=== PATIENT | male | born 1950 | race African-American/Black ===

== ENCOUNTER 2016-11-19 08:55 | Emergency (ER) | payer MEDICAID, MEDICARE ==
[~2016-11-19] VITALS: Ht 188 cm; Wt 90.9 kg
[2016-11-19 09:01] VITALS: BP 152/92
[2016-11-19] MEDS ORDERED: BACITRACIN 0.9 GM PACKET OINTMENT TP ONE (09:45)
== END 2016-11-19 10:00 | disposition home or self-care (01) ==
LOC: EMS 08:59
DX: L97.329 Non-pressure chronic ulcer of left ankle with unspecified severity (principal); Z48.00 Encounter for change or removal of nonsurgical wound dressing
CPT/HCPCS: 99283

== ENCOUNTER 2016-11-28 16:44 | Emergency (ER) | payer MEDICARE ==
[~2016-11-28] VITALS: Ht 185.4 cm; Wt 93.2 kg
[2016-11-28 19:42] LABS: BASOPHILS % (AUTO) 0.6 % (0.0-2.0); EOSINOPHILS % (AUTO) 1.9 % (1.0-6.0); HEMATOCRIT 36.4 % (41-53); HEMOGLOBIN 12.2 g/dL (13.5-17.5); LYMPHOCYTES % (AUTO) 15.9 % (22.0-44.0); MEAN CORPUSCULAR HEMOGLOBIN 28.8 pg (26.0-34.0); MEAN CORPUSCULAR HGB CONC 33.5 G/dL (31.0-37.0); MEAN CORPUSCULAR VOLUME 86 fL (80-100); MONOCYTES # (AUTO) 0.6 K/uL (0.1-1.0); MONOCYTES % (AUTO) 9.6 % (2.0-9.0); NEUTROPHILS # (AUTO) 4.4 K/uL (1.8-7.7); PLATELET COUNT (AUTO) 314 K/uL (150-450); RED BLOOD CELL COUNT(AUTO) 4.24 MIL/uL (4.50-5.90); RED CELL DISTRIBUTION WIDTH 13.3 % (11.5-14.5); WHITE BLOOD COUNT (AUTO) 6.1 K/uL (4.5-11.0)
[2016-11-28 19:52] LABS: ANION GAP 10 mmol/L (8-16); CALCIUM, TOTAL 9.1 mg/dL (8.8-10.5); CARBON DIOXIDE 29 mmol/L (22-29); CHLORIDE 103 mmol/L (98-107); GLOMERULAR FILTR. RATE CALC > 60 mL/min (>60); POTASSIUM 4.1 mmol/L (3.5-5.1); SODIUM SERUM 142 mmol/L (136-145); UREA NITROGEN, BLOOD 7 mg/dL (7-18)
[2016-11-28 19:54] LABS: INR 0.9 (0.9-1.1); PROTHROMBIN TIME 9.8 SEC (9.4-11.6)
[2016-11-28 19:57] LABS: ALANINE AMINOTRANSFERASE 33 U/L (12-78); ALBUMIN 3.2 g/dL (3.4-5.0); ASPARTATE AMINOTRANSFERASE 27 U/L (15-37); BILIRUBIN,TOTAL 0.3 mg/dL (0.1-1.0); TOTAL PROTEIN, SERUM 7.3 g/dL (6.4-8.2)
[2016-11-28] MEDS ORDERED: BISACODYL 10 MG RECTAL RECTAL SUPPOSITORY PR PRN (22:15)
[2016-11-28] MEDS ORDERED: ALBUTEROL SULFATE 2.5 MG/0.5 ML NEB SOLUTION NEB PRN (22:15)
[2016-11-28] MEDS ORDERED: ACETAMINOPHEN 325 MG TABLET PO PRN ×2 (22:15)
[2016-11-28] MEDS ORDERED: ENOXAPARIN SODIUM 100 MG/ML PF SYRINGE SQ SCH (22:15)
[2016-11-28] MEDS ORDERED: ONDANSETRON HCL 4 MG/2 ML VIAL IVP PRN (22:15)
[2016-11-28] MEDS ORDERED: 0.9% SODIUM CHLORIDE 10 ML SYRINGE IVP PRN (22:15)
[2016-11-28] MEDS ORDERED: OxyCODONE HCL/ACETAMINOPHEN 5-325 MG TABLET PO PRN (22:15)
[2016-11-28 22:30] VITALS: BP 124/83
[2016-11-29] MEDS ORDERED: HEPARIN SODIUM,PORCINE 5,000 UNITS/ML VIAL SQ SCH
[2016-11-29] MEDS ORDERED: ENOXAPARIN SODIUM 100 MG/ML PF SYRINGE SQ SCH (09:00)
[2016-11-29] MEDS ORDERED: DOCUSATE SODIUM 100 MG CAPSULE PO SCH (09:00)
[2016-11-29] MEDS ORDERED: PANTOPRAZOLE SODIUM 40 MG DR TABLET PO SCH (09:00)
== END 2016-11-28 23:02 | disposition home or self-care (01) ==
LOC: EMS 16:46 → UNDOADMIN 22:00 → 6N 22:00 → EMS 23:02
DX: R60.0 Localized edema (principal); M79.89 Other specified soft tissue disorders; Z88.8 Allergy status to other drugs, medicaments and biological substances
CPT/HCPCS: 87040; 93925; 93971; 99285; J1650

== ENCOUNTER 2017-02-24 10:59 | Emergency (ER) | payer MEDICARE ==
[~2017-02-24] VITALS: Ht 185.4 cm; Wt 88.6 kg
[2017-02-24 14:21] VITALS: BP 121/88
== END 2017-02-24 14:22 | disposition home or self-care (01) ==
LOC: EMS 11:00
DX: R60.0 Localized edema (principal); Z88.8 Allergy status to other drugs, medicaments and biological substances
CPT/HCPCS: 99281

== ENCOUNTER 2017-02-25 12:50 | Emergency (ER) | payer MEDICARE ==
[~2017-02-25] VITALS: Ht 188 cm; Wt 88.6 kg
[2017-02-25] MEDS ORDERED: PERTUSS(ACELL),DIPH,TET VAC/PF 0.5 ML VIAL IM ONE (14:30)
[2017-02-25 15:06] VITALS: BP 127/73
== END 2017-02-25 15:09 | disposition home or self-care (01) ==
LOC: EMS 12:52
DX: S90.32XA Contusion of left foot, initial encounter (principal); F20.9 Schizophrenia, unspecified; Z23 Encounter for immunization; W26.8XXA Contact with other sharp object(s), not elsewhere classified, initial encounter; Y93.89 Activity, other specified; Y92.39 Other specified sports and athletic area as the place of occurrence of the external cause; Y99.8 Other external cause status; Z88.8 Allergy status to other drugs, medicaments and biological substances
CPT/HCPCS: 90471; 90715; 99283

== ENCOUNTER 2017-03-07 00:56 | Emergency (ER) | payer MEDICARE ==
[~2017-03-07] VITALS: Ht 185.4 cm; Wt 72.3 kg
[2017-03-07 02:26] VITALS: BP 129/80
== END 2017-03-07 02:42 | disposition home or self-care (01) ==
LOC: EMS 00:57
DX: R60.0 Localized edema (principal); L97.829 Non-pressure chronic ulcer of other part of left lower leg with unspecified severity; L97.819 Non-pressure chronic ulcer of other part of right lower leg with unspecified severity; Z88.8 Allergy status to other drugs, medicaments and biological substances
CPT/HCPCS: 99283

== ENCOUNTER 2017-07-13 19:47 | Emergency (ER) | payer MEDICARE ==
[~2017-07-13] VITALS: Ht 185.4 cm; Wt 86.4 kg
[2017-07-13 21:42] LABS: BASOPHILS % (AUTO) 0.8 % (0.0-2.0); EOSINOPHILS % (AUTO) 1.5 % (1.0-6.0); HEMATOCRIT 41.7 % (41-53); LYMPHOCYTES # (AUTO) 1.5 K/uL (1.0-4.8); LYMPHOCYTES % (AUTO) 23.1 % (22.0-44.0); MEAN CORPUSCULAR HEMOGLOBIN 28.4 pg (26.0-34.0); MEAN CORPUSCULAR HGB CONC 33.5 G/dL (31.0-37.0); MEAN CORPUSCULAR VOLUME 85 fL (80-100); MONOCYTES # (AUTO) 0.8 K/uL (0.1-1.0); NEUTROPHILS % (AUTO) 62.6 % (40.0-70.0); PLATELET COUNT (AUTO) 276 K/uL (150-450); RED BLOOD CELL COUNT(AUTO) 4.92 MIL/uL (4.50-5.90); RED CELL DISTRIBUTION WIDTH 13.6 % (11.5-14.5)
[2017-07-13 22:00] LABS: ANION GAP 9 mmol/L (8-16); CARBON DIOXIDE 27 mmol/L (22-29); CHLORIDE 102 mmol/L (98-107); CREATININE 1.26 mg/dL (0.60-1.30); GLOMERULAR FILTR. RATE CALC > 60 mL/min (>60); GLUCOSE,RANDOM 104 mg/dL (70-110); POTASSIUM 4.6 mmol/L (3.5-5.1); SODIUM SERUM 138 mmol/L (136-145); UREA NITROGEN, BLOOD 10 mg/dL (7-18)
[2017-07-13 22:06] LABS: ALANINE AMINOTRANSFERASE 27 U/L (12-78); ALBUMIN 3.6 g/dL (3.4-5.0); ALKALINE PHOSPHATASE 106 U/L (46-116); ASPARTATE AMINOTRANSFERASE 21 U/L (15-37); BILIRUBIN,TOTAL 0.2 mg/dL (0.1-1.0); TOTAL PROTEIN, SERUM 7.2 g/dL (6.4-8.2)
[2017-07-13 22:52] VITALS: BP 132/74
== END 2017-07-13 22:56 | disposition home or self-care (01) ==
LOC: EMS 19:48
DX: R60.0 Localized edema (principal); F20.9 Schizophrenia, unspecified; Z88.8 Allergy status to other drugs, medicaments and biological substances
CPT/HCPCS: 93971; 99285

== ENCOUNTER → 2018-01-07 | Outpatient (CLI) | payer MEDICARE ==
[~2018-01-07] VITALS: Ht 185.4 cm; Wt 92.0 kg
[~2018-01-07] MED LIST: LIDOCAINE 4% 50 ML SOLUTION TP ONE
[2018-01-07 10:40] VITALS: BP 100/65
== END | disposition home or self-care (01) ==
LOC: HBOWC 10:05
PROVIDERS: ATTEND Internal Medicine
DX: S91.002A Unspecified open wound, left ankle, initial encounter (principal); S91.001A Unspecified open wound, right ankle, initial encounter; I87.2 Venous insufficiency (chronic) (peripheral); F20.0 Paranoid schizophrenia; X58.XXXA Exposure to other specified factors, initial encounter; Y93.89 Activity, other specified; Y92.89 Other specified places as the place of occurrence of the external cause; Y99.8 Other external cause status
CPT/HCPCS: 11042; G0463

== ENCOUNTER → 2018-01-14 | Outpatient (CLI) | payer MEDICARE ==
[2018-01-14 10:08] VITALS: BP 131/78
== END | disposition home or self-care (01) ==
LOC: HBOWC 09:34
PROVIDERS: ATTEND Internal Medicine
DX: S91.002D Unspecified open wound, left ankle, subsequent encounter (principal); F20.0 Paranoid schizophrenia; I87.2 Venous insufficiency (chronic) (peripheral); X58.XXXD Exposure to other specified factors, subsequent encounter
CPT/HCPCS: 11042

== ENCOUNTER → 2018-01-21 | Outpatient (CLI) | payer MEDICARE ==
[2018-01-21 10:47] VITALS: BP 131/76
== END | disposition home or self-care (01) ==
LOC: MSR 09:33
PROVIDERS: ATTEND Internal Medicine
DX: L97.329 Non-pressure chronic ulcer of left ankle with unspecified severity (principal); L97.529 Non-pressure chronic ulcer of other part of left foot with unspecified severity; R60.0 Localized edema; F20.0 Paranoid schizophrenia
CPT/HCPCS: 93925; 93970

== ENCOUNTER → 2018-02-04 | Outpatient (CLI) | payer MEDICARE ==
[2018-02-04 10:08] VITALS: BP 114/78
== END | disposition home or self-care (01) ==
LOC: HBOWC 09:22
PROVIDERS: ATTEND Internal Medicine
DX: S91.002D Unspecified open wound, left ankle, subsequent encounter (principal); F20.0 Paranoid schizophrenia; I87.2 Venous insufficiency (chronic) (peripheral); X58.XXXD Exposure to other specified factors, subsequent encounter

== ENCOUNTER → 2018-02-18 | Outpatient (CLI) | payer MEDICARE ==
[2018-02-18 09:21] VITALS: BP 112/70
== END | disposition home or self-care (01) ==
LOC: HBOWC 09:06
PROVIDERS: ATTEND Internal Medicine
DX: S91.002D Unspecified open wound, left ankle, subsequent encounter (principal); I87.2 Venous insufficiency (chronic) (peripheral); F20.0 Paranoid schizophrenia; X58.XXXD Exposure to other specified factors, subsequent encounter

== ENCOUNTER → 2018-02-25 | Outpatient (CLI) | payer MEDICARE ==
[2018-02-25 10:10] VITALS: BP 102/59
== END | disposition home or self-care (01) ==
LOC: HBOWC 09:39
PROVIDERS: ATTEND Internal Medicine
DX: S91.002D Unspecified open wound, left ankle, subsequent encounter (principal); I87.2 Venous insufficiency (chronic) (peripheral); F20.0 Paranoid schizophrenia; X58.XXXD Exposure to other specified factors, subsequent encounter

== ENCOUNTER → 2018-03-04 | Outpatient (CLI) | payer MEDICARE ==
[2018-03-04 09:20] VITALS: BP 138/68
== END | disposition home or self-care (01) ==
LOC: HBOWC 09:03
PROVIDERS: ATTEND Internal Medicine
DX: S81.802D Unspecified open wound, left lower leg, subsequent encounter (principal); I87.2 Venous insufficiency (chronic) (peripheral); F20.0 Paranoid schizophrenia; X58.XXXD Exposure to other specified factors, subsequent encounter

== ENCOUNTER → 2018-03-11 | Outpatient (CLI) | payer MEDICARE ==
[2018-03-11 09:30] VITALS: BP 119/66
== END | disposition home or self-care (01) ==
LOC: HBOWC 09:24
PROVIDERS: ATTEND Internal Medicine
DX: S91.002D Unspecified open wound, left ankle, subsequent encounter (principal); I87.2 Venous insufficiency (chronic) (peripheral); F20.0 Paranoid schizophrenia; X58.XXXD Exposure to other specified factors, subsequent encounter

== ENCOUNTER 2020-10-25 08:59 | Emergency (ER) | payer OTHER, MEDICAID ==
[~2020-10-25] VITALS: Ht 188 cm; Wt 90.9 kg
[2020-10-25 09:19] VITALS: BP 127/65
== END 2020-10-25 10:34 | disposition home or self-care (01) ==
LOC: EMS 09:10
DX: T63.441A Toxic effect of venom of bees, accidental (unintentional), initial encounter (principal); F20.9 Schizophrenia, unspecified; Z88.0 Allergy status to penicillin; Y92.89 Other specified places as the place of occurrence of the external cause
CPT/HCPCS: 99281; Z7502

== ENCOUNTER 2020-10-30 15:15 | Emergency (ER) | payer OTHER, MEDICAID ==
[~2020-10-30] VITALS: Ht 175.3 cm; Wt 72.7 kg
[2020-10-30 17:49] LABS: BASOPHILS % (AUTO) 0.4 % (0.0-2.0); EOSINOPHILS % (AUTO) 7.4 % (1.0-6.0); HEMATOCRIT 32.7 % (41-53); HEMOGLOBIN 10.4 g/dL (13.5-17.5); MEAN CORPUSCULAR HEMOGLOBIN 28.1 pg (26.0-34.0); MEAN CORPUSCULAR HGB CONC 31.7 G/dL (31.0-37.0); MEAN CORPUSCULAR VOLUME 89 fL (80-100); MONOCYTES # (AUTO) 0.6 K/uL (0.1-1.0); MONOCYTES % (AUTO) 6.9 % (2.0-9.0); NEUTROPHILS # (AUTO) 6.3 K/uL (1.8-7.7); NEUTROPHILS % (AUTO) 73.3 % (40.0-70.0); PLATELET COUNT (AUTO) 301 K/uL (150-450); RED BLOOD CELL COUNT(AUTO) 3.68 MIL/uL (4.50-5.90); RED CELL DISTRIBUTION WIDTH 14.9 % (11.5-14.5)
[2020-10-30 17:59] LABS: CALCIUM, TOTAL 8.7 mg/dL (8.8-10.5); CREATININE 2.66 mg/dL (0.60-1.30)
[2020-10-30 18:07] LABS: LACTIC ACID 0.8 mmol/L (0.4-2.0)
[2020-10-30] MEDS ORDERED: CefTRIAXone SODIUM 1 GM/VIAL IM ONE (19:00)
[2020-10-30] MEDS ORDERED: LIDOCAINE/PF 1% 2 ML VIAL IM ONE (19:00)
[2020-10-30 20:30] VITALS: BP 119/74
== END 2020-10-30 21:11 | disposition home or self-care (01) ==
LOC: EMS 15:22
DX: L03.115 Cellulitis of right lower limb (principal); F20.9 Schizophrenia, unspecified; Z88.8 Allergy status to other drugs, medicaments and biological substances
CPT/HCPCS: 36415; 80048; 83605; 85025; 93971; 96372; 99284; J0696; J3490

== ENCOUNTER 2021-03-22 14:54 | Emergency (ER) | payer OTHER, MEDICAID | END 2021-03-22 15:00 | disposition left against medical advice (07) | LOC: EMS 14:58 | DX: Z00.00 Encounter for general adult medical examination without abnormal findings (principal); Z53.21 Procedure and treatment not carried out due to patient leaving prior to being seen by health care provider ==

== ENCOUNTER 2021-04-07 11:25 | Emergency (ER) | payer OTHER, MEDICAID ==
[~2021-04-07] VITALS: Ht 185.4 cm; Wt 86.4 kg
[2021-04-07 11:32] VITALS: BP 135/85
== END 2021-04-07 12:30 | disposition left against medical advice (07) ==
LOC: EMS 11:29
DX: M79.605 Pain in left leg (principal); Z53.21 Procedure and treatment not carried out due to patient leaving prior to being seen by health care provider

== ENCOUNTER 2021-04-29 12:48 | Emergency (ER) | payer OTHER, MEDICAID | END 2021-04-29 13:30 | disposition left against medical advice (07) | LOC: EMS 13:06 | DX: R60.9 Edema, unspecified (principal); Z53.21 Procedure and treatment not carried out due to patient leaving prior to being seen by health care provider ==

== ENCOUNTER 2021-09-04 11:48 | Emergency (ER) | payer OTHER, MEDICAID ==
[~2021-09-04] VITALS: Ht 182.9 cm; Wt 100.0 kg
[2021-09-04 12:00] VITALS: BP 140/81
== END 2021-09-04 14:23 | disposition left against medical advice (07) ==
LOC: EMS 11:48
DX: Z53.21 Procedure and treatment not carried out due to patient leaving prior to being seen by health care provider (principal)

== ENCOUNTER 2021-09-18 11:05 | Emergency (ER) | payer OTHER, MEDICAID ==
[~2021-09-18] VITALS: Ht 188 cm; Wt 100.0 kg
[2021-09-18 11:07] VITALS: BP 150/70
== END 2021-09-18 12:16 | disposition left against medical advice (07) ==
LOC: EMS 11:10
DX: Z53.21 Procedure and treatment not carried out due to patient leaving prior to being seen by health care provider (principal)

== ENCOUNTER 2021-12-15 08:20 | Emergency (ER) | payer OTHER, MEDICAID | END 2021-12-15 09:06 | disposition left against medical advice (07) | LOC: EMS 08:26 | DX: Z53.21 Procedure and treatment not carried out due to patient leaving prior to being seen by health care provider (principal) ==

== ENCOUNTER 2022-01-03 09:09 | Emergency (ER) | payer OTHER, MEDICAID ==
[~2022-01-03] VITALS: Ht 182.9 cm; Wt 101.0 kg
[2022-01-03 09:18] VITALS: BP 152/82
== END 2022-01-03 09:46 | disposition left against medical advice (07) ==
LOC: EMS 09:12
DX: Z53.21 Procedure and treatment not carried out due to patient leaving prior to being seen by health care provider (principal)

== ENCOUNTER 2022-02-08 10:46 | Emergency (ER) | payer OTHER, MEDICAID ==
[~2022-02-08] VITALS: Ht 175.3 cm; Wt 75.0 kg
[2022-02-08 10:52] VITALS: BP 154/73
== END 2022-02-08 11:52 | disposition left against medical advice (07) ==
LOC: EMS 10:48
DX: Z53.21 Procedure and treatment not carried out due to patient leaving prior to being seen by health care provider (principal)

== ENCOUNTER 2022-10-09 09:55 | Emergency (ER) | payer MEDICARE, MEDICAID ==
[~2022-10-09] VITALS: Ht 188 cm; Wt 90.9 kg
[2022-10-09 10:37] VITALS: BP 143/85; PULSE 80; RESP 18; TEMP 98.5
== END 2022-10-09 11:33 | disposition home or self-care (01) ==
LOC: EMS 09:55
DX: Z59.86 Financial insecurity (principal); F20.9 Schizophrenia, unspecified; Z98.890 Other specified postprocedural states; Z88.8 Allergy status to other drugs, medicaments and biological substances
CPT/HCPCS: 99281; Z7502

== ENCOUNTER 2022-10-28 12:48 | Emergency (ER) | payer MEDICARE, MEDICAID ==
[~2022-10-28] VITALS: Ht 185.4 cm; Wt 88.6 kg
[2022-10-28 14:11] VITALS: TEMP 98.3
[2022-10-28 15:16] LABS: BASOPHILS % (AUTO) 0.4 % (0.0-2.0); EOSINOPHILS % (AUTO) 0.7 % (1.0-6.0); HEMATOCRIT 31.7 % (41-53); LYMPHOCYTES # (AUTO) 0.5 K/uL (1.0-4.8); LYMPHOCYTES % (AUTO) 6.3 % (22.0-44.0); MEAN CORPUSCULAR HGB CONC 31.5 G/dL (31.0-37.0); MEAN CORPUSCULAR VOLUME 89 fL (80-100); MONOCYTES # (AUTO) 0.4 K/uL (0.1-1.0); MONOCYTES % (AUTO) 4.9 % (2.0-9.0); NEUTROPHILS # (AUTO) 7.2 K/uL (1.8-7.7); PLATELET COUNT (AUTO) 276 K/uL (150-450); RED BLOOD CELL COUNT(AUTO) 3.57 MIL/uL (4.50-5.90); RED CELL DISTRIBUTION WIDTH 17.7 % (11.5-14.5)
[2022-10-28 15:20] LABS: NEUTROPHILS % (AUTO) 87.7 % (40.0-70.0)
[2022-10-28 15:27] LABS: CALCIUM, TOTAL 7.5 mg/dL (8.8-10.5); CREATININE 4.78 mg/dL (0.60-1.30); POTASSIUM 4.8 mmol/L (3.5-5.1)
[2022-10-28 16:52] VITALS: BP 168/93; PULSE 83; RESP 16
== END 2022-10-28 17:59 | disposition home or self-care (01) ==
LOC: EMS 12:49
DX: R55 Syncope and collapse (principal); N18.9 Chronic kidney disease, unspecified; J44.9 Chronic obstructive pulmonary disease, unspecified; F20.9 Schizophrenia, unspecified; Z98.890 Other specified postprocedural states; Z88.8 Allergy status to other drugs, medicaments and biological substances
CPT/HCPCS: 80048; 85025; 93005; 99284

== ENCOUNTER 2022-11-20 09:51 | Emergency (ER) | payer MEDICARE, MEDICAID ==
[~2022-11-20] VITALS: Ht 185.4 cm; Wt 88.6 kg
[2022-11-20 09:59] VITALS: BP 138/78; PULSE 60; RESP 20; TEMP 97.6
== END 2022-11-20 10:18 | disposition left against medical advice (07) ==
LOC: EMS 09:51
DX: Z53.21 Procedure and treatment not carried out due to patient leaving prior to being seen by health care provider (principal)
CPT/HCPCS: 99281; Z7502

== ENCOUNTER 2023-02-03 08:07 | Emergency (ER) | payer MEDICARE, MEDICAID ==
[~2023-02-03] VITALS: Ht 182.9 cm; Wt 100.0 kg
[2023-02-03 08:14] VITALS: BP 152/75; PULSE 72; RESP 18; TEMP 98.6
== END 2023-02-03 08:35 | disposition left against medical advice (07) ==
LOC: EMS 08:11
DX: R46.89 Other symptoms and signs involving appearance and behavior (principal); Z53.21 Procedure and treatment not carried out due to patient leaving prior to being seen by health care provider
CPT/HCPCS: 99281; Z7502

== ENCOUNTER 2023-03-17 13:46 | Emergency (ER) | payer MEDICARE, MEDICAID | END 2023-03-17 14:33 | disposition left against medical advice (07) | LOC: EMS 13:46 | DX: Z53.21 Procedure and treatment not carried out due to patient leaving prior to being seen by health care provider (principal) ==

== ENCOUNTER 2023-04-04 13:24 | Emergency (ER) | payer MEDICARE, MEDICAID ==
[~2023-04-04] VITALS: Ht 185.4 cm; Wt 88.6 kg
[2023-04-04 13:31] VITALS: BP 138/87; PULSE 81; RESP 16; TEMP 98.5
== END 2023-04-04 15:00 | disposition left against medical advice (07) ==
LOC: EMS 14:25
DX: S90.912D Unspecified superficial injury of left ankle, subsequent encounter (principal); Z53.21 Procedure and treatment not carried out due to patient leaving prior to being seen by health care provider; X58.XXXD Exposure to other specified factors, subsequent encounter
CPT/HCPCS: 99281; Z7502

== ENCOUNTER 2023-06-01 08:23 | Emergency (ER) | payer MEDICARE, MEDICAID ==
[~2023-06-01] VITALS: Ht 188 cm; Wt 90.9 kg
[2023-06-01 08:29] VITALS: BP 142/78; PULSE 92; RESP 18; TEMP 98
== END 2023-06-01 09:10 | disposition home or self-care (01) ==
LOC: EMS 08:23
DX: F20.0 Paranoid schizophrenia (principal); J44.9 Chronic obstructive pulmonary disease, unspecified; Z98.890 Other specified postprocedural states; Z59.86 Financial insecurity; Z59.00 Homelessness unspecified
CPT/HCPCS: 99281; Z7502

== ENCOUNTER 2023-06-14 12:20 | Emergency (ER) | payer MEDICARE, MEDICAID ==
[~2023-06-14] VITALS: Ht 185.4 cm; Wt 72.7 kg
[2023-06-14 12:29] VITALS: BP 139/89; PULSE 90; RESP 16; TEMP 98
== END 2023-06-14 13:52 | disposition left against medical advice (07) ==
LOC: EMS 12:41
DX: Z53.21 Procedure and treatment not carried out due to patient leaving prior to being seen by health care provider (principal)
CPT/HCPCS: 99281; Z7502

== ENCOUNTER 2023-10-08 09:36 | Emergency (ER) | payer MEDICARE, MEDICAID ==
[~2023-10-08] VITALS: Ht 185.4 cm; Wt 86.4 kg
[2023-10-08 09:43] VITALS: BP 159/78; PULSE 68; RESP 18; TEMP 98.3
[2023-10-08] MEDS: CEPHALEXIN MONOHYDRATE 500 MG CAPSULE PO ONE (10:24)
[2023-10-08] MEDS ORDERED: CEPH-558 PO (11:58)
== END 2023-10-08 12:11 | disposition home or self-care (01) ==
LOC: EMS 09:36
DX: L03.116 Cellulitis of left lower limb (principal); J44.9 Chronic obstructive pulmonary disease, unspecified; E11.9 Type 2 diabetes mellitus without complications; Z88.6 Allergy status to analgesic agent
CPT/HCPCS: 82962; 99283

== ENCOUNTER 2023-10-28 14:47 | Emergency (ER) | payer MEDICARE, MEDICAID ==
[~2023-10-28 14:47] MED LIST changes: +CEPH-558 PO; -LIDOCAINE 4% 50 ML SOLUTION TP ONE
== END 2023-10-28 15:15 | disposition still patient (30) ==
LOC: EMS 15:15
DX: M25.572 Pain in left ankle and joints of left foot (principal); Z53.21 Procedure and treatment not carried out due to patient leaving prior to being seen by health care provider

== ENCOUNTER 2024-04-26 14:15 | Emergency (ER) | payer MEDICARE, MEDICAID ==
[~2024-04-26] VITALS: Ht 177.8 cm; Wt 63.6 kg
[2024-04-26 14:23] VITALS: BP 142/74; PULSE 81; RESP 18; TEMP 98; O2SAT 99
== END 2024-04-26 16:37 | disposition left against medical advice (07) ==
LOC: EMS 14:15
DX: E86.0 Dehydration (principal); Z53.21 Procedure and treatment not carried out due to patient leaving prior to being seen by health care provider

== ENCOUNTER 2024-10-14 08:56 | Emergency (ER) | payer MEDICARE, MEDICAID | END 2024-10-14 09:06 | disposition left against medical advice (07) | LOC: EMS 08:59 | DX: Z00.00 Encounter for general adult medical examination without abnormal findings (principal); Z53.21 Procedure and treatment not carried out due to patient leaving prior to being seen by health care provider ==

== ENCOUNTER 2024-11-12 14:09 | Emergency (ER) | payer MEDICARE, MEDICAID ==
[~2024-11-12] VITALS: Ht 185.4 cm; Wt 87.7 kg
[2024-11-12 14:14] VITALS: BP 148/95; PULSE 74; RESP 18; TEMP 98.2; O2SAT 99
== END 2024-11-12 14:33 | disposition left against medical advice (07) ==
LOC: EMS 14:09
DX: Z00.8 Encounter for other general examination (principal); Z53.21 Procedure and treatment not carried out due to patient leaving prior to being seen by health care provider
CPT/HCPCS: 82962

== ENCOUNTER 2024-12-18 13:18 | Emergency (ER) | payer MEDICARE, MEDICAID ==
[~2024-12-18] VITALS: Ht 185.4 cm; Wt 88.0 kg
[2024-12-18 13:27] VITALS: BP 153/58; PULSE 78; RESP 18; TEMP 98.2; O2SAT 98
== END 2024-12-18 13:59 | disposition left against medical advice (07) ==
LOC: EMS 13:21
DX: Z48.00 Encounter for change or removal of nonsurgical wound dressing (principal); Z53.21 Procedure and treatment not carried out due to patient leaving prior to being seen by health care provider